=== PATIENT | male | born 1980 | race Caucasian/White ===

== ENCOUNTER 2021-11-19 10:26 | Inpatient (IN) | payer OTHER ==
[~2021-11-19] VITALS: Ht 182.9 cm; Wt 120.2 kg
[2021-11-19] MEDS ORDERED: FAMOTIDINE 20 MG/2 ML VIAL IV STA (10:34)
[2021-11-19] MEDS ORDERED: METHYLPREDNISOLONE SOD SUCC 125 MG/2ML VIAL IV STA (10:34)
[2021-11-19] MEDS ORDERED: SODIUM CHLORIDE 0.9% 1000ML 1,000 ML IV STA (10:34)
[2021-11-19] MEDS ORDERED: MEROPENEM 1 GM in SODIUM CHLORIDE 0.9% 100 ML IV ONE (10:45)
[2021-11-19] MEDS ORDERED: DIPHENHYDRAMINE HCL INJ 50 MG/ML VIAL IV ONE (10:45)
[2021-11-19] MEDS ORDERED: METHYLPREDNISOLONE SOD SUCC 125 MG/2ML VIAL ONE (10:54)
[2021-11-19 11:02] LABS: BASOPHILS % 0.4 % (0.0-1.0); EOSINOPHILS # (AUTO) 0.2 (0.0-0.4); EOSINOPHILS % 1.8 % (0.0-6.0); HEMATOCRIT 48.8 % (38.2-49.6); HEMOGLOBIN 15.9 g/dL (14.0-18.0); LYMPHOCYTES # (AUTO) 1.8 (1.0-3.2); LYMPHOCYTES % 17.8 % (18.0-39.1); MEAN CORPUSCULAR HEMOGLOBIN 27.9 pg (28-32); MEAN CORPUSCULAR HGB CONC 32.6 g/dL (31-35); MEAN CORPUSCULAR VOLUME 85.6 fL (81-99); MONOCYTES # (AUTO) 0.8 (0.2-0.8); MONOCYTES % 7.6 % (4.4-11.3); NEUTROPHILS # (AUTO) 7.5 (2.1-6.9); PLATELET COUNT 378 x10e3/uL (140-360); RED CELL DISTRIBUTION WIDTH 14.5 % (11.7-14.4)
[2021-11-19 11:12] LABS: INR 0.88; PARTIAL THROMBOPLASTIN TIME 30.7 seconds (23.8-35.5); PROTHROMBIN TIME 12.8 seconds (11.9-14.5)
[2021-11-19 11:19] LABS: ALBUMIN 3.9 g/dL (3.5-5.0); ALBUMIN/GLOBULIN RATIO 0.8 (0.8-2.0); ANION GAP 17.1 mmol/L (8-16); CALCIUM 9.5 mg/dL (8.4-10.2); CREATININE, SERUM 0.93 mg/dL (0.72-1.25); POTASSIUM 4.1 mmol/L (3.5-5.1)
[2021-11-19] MEDS ORDERED: SODIUM CHLORIDE 0.9% 1000ML 1,000 ML IV SCH (13:45)
[2021-11-19] MEDS ORDERED: ONDANSETRON HCL INJ 2MG/ML 2ML 2 MG/ML VIAL IV PRN (13:45)
[2021-11-19] MEDS ORDERED: Morphine 4mg INJECTION 4 MG/ML INJ IV PRN (13:45)
[2021-11-19] MEDS ORDERED: HYDROCODONE/APAP 5MG-325MG TAB PO PRN (18:30)
[2021-11-19] MEDS ORDERED: ACETAMINOPHEN 325 MG TAB PO PRN (18:30)
[2021-11-19] MEDS ORDERED: Vancomycin IV 1 GM in SODIUM CHLORIDE 0.9% 250ML 250 ML IV ONE (19:15)
[2021-11-19] MEDS ORDERED: MEROPENEM 500 MG VIAL ONE (19:23)
[2021-11-19 20:00] VITALS: BP 156/93
[2021-11-19] MEDS ORDERED: MEROPENEM 1 GM in SODIUM CHLORIDE 0.9% 100 ML IV SCH (20:00)
[2021-11-19 21:00] VITALS: BP 156/93
[2021-11-19] MEDS ORDERED: KETOROLAC TROMETHAMINE 30 MG/ML VIAL IV SCH (21:00)
[2021-11-19 23:00] VITALS: BP 156/93
[2021-11-20 01:56] VITALS: BP 129/85
[2021-11-20 06:09] VITALS: BP 124/82
[2021-11-20 07:12] LABS: BASOPHILS % 0.1 % (0.0-1.0); EOSINOPHILS % 0.1 % (0.0-6.0); HEMATOCRIT 44.7 % (38.2-49.6); HEMOGLOBIN 14.2 g/dL (14.0-18.0); LYMPHOCYTES % 15.8 % (18.0-39.1); MEAN CORPUSCULAR HGB CONC 31.8 g/dL (31-35); MEAN CORPUSCULAR VOLUME 88.2 fL (81-99); MONOCYTES % 7.6 % (4.4-11.3); NEUTROPHILS # (AUTO) 9.5 (2.1-6.9); NEUTROPHILS % 75.6 % (38.7-80.0); PLATELET COUNT 366 x10e3/uL (140-360); RED BLOOD COUNT 5.07 x10e6/uL (4.3-5.7); RED CELL DISTRIBUTION WIDTH 14.5 % (11.7-14.4)
[2021-11-20 08:00] VITALS: BP 124/82
[2021-11-20 08:36] LABS: ANION GAP 16.1 mmol/L (8-16); CALCIUM 8.8 mg/dL (8.4-10.2); CREATININE, SERUM 0.8 mg/dL (0.72-1.25); POTASSIUM 4.1 mmol/L (3.5-5.1)
[2021-11-20 09:12] VITALS: BP 132/90
[2021-11-20] MEDS ORDERED: METHYLPREDNISOLONE SOD SUCC 125 MG/2ML VIAL IV ONE ×2 (10:30→14:00)
[2021-11-20] MEDS ORDERED: DIPHENHYDRAMINE HCL 25 MG CAP PO ONE (10:30)
[2021-11-20] MEDS ORDERED: IOPAMIDOL 370 MG/ML 100 ML INFUS..BTL INJ ONE (13:35)
[2021-11-20 16:09] VITALS: BP 137/77
[2021-11-20] MEDS: Vancomycin IV 1.25 GM in SODIUM CHLORIDE 0.9% 250ML 250 ML IV SCH (18:45)
[2021-11-20 20:00] VITALS: BP 127/89
[2021-11-21] VITALS: BP 134/93
[2021-11-21 04:00] VITALS: BP 127/98
[2021-11-21] MEDS: Vancomycin IV 1.25 GM in SODIUM CHLORIDE 0.9% 250ML 250 ML IV SCH (06:43)
[2021-11-21 07:42] VITALS: BP 130/81
[2021-11-21] MEDS ORDERED: LEVOFLOXACIN250 MG PO (11:01)
[2021-11-21] MEDS ORDERED: METRONIDAZOLE500 MG PO (11:02)
[2021-11-21 11:30] VITALS: BP 139/84
[2021-11-21] MEDS ORDERED: METHYLPREDNISOLONE SOD SUCC 125 MG/2ML VIAL IV ONE (11:30)
== END 2021-11-21 12:24 | disposition home or self-care (01) | DRG 158 ==
LOC: ER 10:38 → ERHOLD 13:50 → MED/SURG2 18:17
PROVIDERS: ADMIT Internal Medicine; ATTEND Internal Medicine
DX: K04.7 Periapical abscess without sinus (principal); L03.211 Cellulitis of face; Z20.822 Contact with and (suspected) exposure to COVID-19; E66.9 Obesity, unspecified; Z68.35 Body mass index [BMI] 35.0-35.9, adult; Z88.0 Allergy status to penicillin; Z88.2 Allergy status to sulfonamides; Z88.8 Allergy status to other drugs, medicaments and biological substances; Z91.041 Radiographic dye allergy status; Z87.891 Personal history of nicotine dependence
CPT/HCPCS: 36415; 70487; 70490; 80048; 80053; 85025; 85610; 85730; 87040; 94799; 99284; J1200; J2185; J2270; J2405; J2930; J3370; J7030; J7050; Q9967

== ENCOUNTER 2022-03-26 15:26 | Emergency (ER) | payer OTHER ==
[~2022-03-26] VITALS: Ht 182.9 cm; Wt 120.2 kg
[~2022-03-26 15:26] MED LIST: LEVOFLOXACIN250 MG PO; METRONIDAZOLE500 MG PO
[2022-03-26] MEDS ORDERED: CEPHALEXIN500 M1 PO (15:54)
[2022-03-26] MEDS ORDERED: CEPHALEXIN500 MG PO (15:56)
== END 2022-03-26 15:57 | disposition home or self-care (01) ==
LOC: ER 15:32
DX: L03.012 Cellulitis of left finger (principal); S60.461A Insect bite (nonvenomous) of left index finger, initial encounter
CPT/HCPCS: 99283